=== PATIENT | male | born 1980 | race Two or more races ===

== ENCOUNTER 2024-06-22 15:31 | Outpatient (CLI) | payer OTHER | END 2024-06-22 15:38 | disposition home or self-care (01) | LOC: RAD 15:31 | PROVIDERS: ATTEND Internal Medicine | DX: R05.9 Cough, unspecified (principal) ==

== ENCOUNTER 2025-06-27 20:53 | Emergency (ER) | payer OTHER ==
[~2025-06-27] VITALS: Ht 175.3 cm; Wt 79.4 kg
[2025-06-27] MEDS ORDERED: 0.9 % SODIUM CHLORIDE 500 ML IV ONE (21:30)
[2025-06-28 00:11] LABS: BASO % 0.4 % (0.1-1.2); EOS # 0.25 (0.04-0.54); EOS % 1.8 % (0.7-7.0); LYMPH # 1.86 (1.18-3.74); LYMPH % 13.7 % (19.3-53.1); MEAN PLATELET VOLUME 9.10 fl (9.4-12.4); MONO # 0.91 (0.24-0.82); MONO % 6.7 % (4.7-12.5); NEUT # 10.39 (1.56-6.13); NEUT % 77.0 % (34.0-71.1); RED CELL DISTRIBUTION WIDTH 12.4 % (11.6-14.4)
[2025-06-28 00:19] LABS: INR 1.03
[2025-06-28 00:23] LABS: ALT/SGPT 27.0 U/L (12-78); AST/SGOT 11.0 U/L (15-37); BILIRUBIN TOTAL 0.41 mg/dL (0.3-1.2); BUN CREA RATIO 15.0 (7.0-25.0); CREATININE SERUM 0.94 mg/dL (0.70-1.30); GFR 86.02; GLOBULINA 3.2 G/DL (2.4-3.5); GLUCOSE FASTING 101.0 mg/dL (65-100); OSMOLALITY SERUM 282.0 MOSM/KG (275-295)
[2025-06-28] MEDS ORDERED: AZITHROMYCIN500 MG PO (01:28)
[2025-06-28] MEDS ORDERED: PEPCID AC20 MG PO (01:28)
== END 2025-06-28 02:18 | disposition home or self-care (01) ==
LOC: ER 20:53
PROVIDERS: General Practice
DX: R55 Syncope and collapse (principal); J98.8 Other specified respiratory disorders